=== PATIENT | female | born 2000 | race Caucasian/White ===

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

== ENCOUNTER 2022-09-05 17:44 | Emergency (ER) | payer OTHER, SELFPAY ==
--- NOTE | ~2022-09-05 | XR_ITS ---
EXAM: XR elbow LT min 3V DATE: 09/05/2022 18:05 HISTORY: hit left elbow on tray at work . COMPARISON: None available. FINDINGS: Normal mineralization. No fracture or dislocation. No lytic or blastic lesion. Joint space s are maintained. No erosion or periosteal change. Soft tissues within normal limits. IMPRESSION: No acute osseous finding in the left elbow. Reviewed, dictated and finalized at location K.
--- NOTE | 2022-09-05 18:07 | ED.UPPEXIN ---
HPI - Extremity Injury (Upper) General Chief Complaint: Extremity Injury, Upper Stated Complaint: WC, lt elbow injury Time Seen by Provider: 09/05/22 17:45 Source: patient Mode of arrival: ambulatory Limitations: no limitations History of Present Illness HPI narrative: Patient is a 21-year-old female who presents with left elbow pain after hitting it on a tray while working at [employer]. Patient states she has tingling to her pinky that feels like it is asleep. Is able to bend arm normally but is painful to straighten elbow. No wrist or hand pain or weakness. Related Data Home Medications Medication Instructions Recorded Confirmed norethindrone 1.5 mg-ethinyl 1 tablet DAILY 09/05/22 09/05/22 estradiol 30 mcg(21)/iron 75 mg(7) tablet (Rachael Fe 1.5/30 (28)) Allergies Allergy/AdvReac Type Severity Reaction Status Date / Time peanut Allergy Severe anaphylaxis Verified 09/05/22 18:13 Review of Systems Review of Systems: All systems reviewed & are unremarkable except as noted in HPI and below Constitutional: Constitutional: Denies body ache(s), Denies chills, Denies fatigue, Denies fever(s), Denies headache(s), Denies malaise and Denies weakness Eyes: Eyes: Denies blurry vision, Denies irritation and Denies loss of vision ENT: Denies otalgia, Denies headache(s), Denies nasal discharge, Denies sinus pain and Denies sore throat Cardiovascular: Cardiovascular: Denies chest pain, Denies irregular heart rhythm and Denies dyspnea Respiratory: Respiratory: Denies dyspnea Gastrointestinal: Gastrointestinal: Denies abdominal pain, Denies melena, Denies hematochezia, Denies diarrhea, Denies nausea and Denies vomiting Musculoskeletal: Musculoskeletal: Denies back pain, Denies myalgias and Reports arthralgias Integumentary/Breasts: Skin/Breast: Denies pruritus and Denies rash Neurologic: Denies headache(s), Denies loss of vision and Denies weakness Psychiatric: Psychiatric: Reports no additional psychiatric complaints Endocrine: Endocrine: Denies fatigue PMFSH Past Medical History Medical History (Updated 09/05/22 @ 18:25 by Jocelyn Lobo, JESSE) Healthy female adult Peanut allergy Surgical History Surgical History (System 10/25/21 @ 09:27 by Tommy Edmondson) No history of previous surgery Social History Social History (System 10/25/21 @ 09:27 by Tommy Edmondson) Smoking status: Never smoker Alcohol intake: never Substance use: never Comments At time of signature, agree with nursing past medical, surgical, social and family history. There is no relevant family history pertinent to the presenting complaint. Exam Const: General: cooperative, healthy appearing, comfortable, no acute distress and well nourished Nutritional Appearance: well nourished Orientation/consciousness: patient oriented x3 Limitations: no limitations HENMT: Head: normal to inspection, normocephalic and atraumatic Ears: hearing grossly normal bilaterally and external ears normal Face/Nose/Sinus: Normal external nose present, normal facial exam and face symmetric Face and sinus: normal facial exam and face symmetric Mouth: Yes lip normal Eyes: General: appearance normal, both eyes and all related structures Alignment and Position: alignment normal and position normal Periorbital: periorbital findings normal Eyelids: eyelids normal Pupils: Equal, round and reactive pupils present EOM: EOMs intact bilaterally Neck: Neck: normal visual inspection, full ROM and supple Chest: Chest palpation & inspection: normal inspection of the chest Resp: Effort & Inspection: normal respiratory effort and able to speak in complete sentences Auscultation: clear to auscultation bilaterally Cardio: Rate: regular rate Rhythm: regular rhythm Heart sounds: S1 normal heart sound present and S2 normal heart sound present GI: Inspection: normal to inspection Skin: General skin exam: normal color and no rashes or lesions noted Neuro:
[2022-09-05 18:08] VITALS: BP 113/73; PULSE 81; RESP 16; TEMP 36.6; O2SAT 100
[2022-09-05] MEDS: IBUPROFEN 400 MG TABLET 800 MG PO (18:19)
== END 2022-09-05 18:40 | disposition home or self-care (01) ==
PROVIDERS: Emergency Provider Nurse Practitioner Family; PCP Pediatrics
DX: M70.22 Olecranon bursitis, left elbow (principal)
CPT/HCPCS: 73080; 99213; A9270; G0463

== ENCOUNTER 2022-12-03 16:33 | Emergency (ER) | payer OTHER, SELFPAY ==
[2022-12-03 16:43] VITALS: BP 130/81; PULSE 102; RESP 16; TEMP 37.2; O2SAT 100
[2022-12-03] MEDS: diphenhydrAMINE HCl CAP 25 MG CAPSULE 50 MG PO (16:45)
[2022-12-03] MEDS: predniSONE 20 MG TABLET 40 MG PO (16:52)
--- NOTE | 2022-12-03 16:52 | ED.GENADULT ---
HPI - General Adult General Chief complaint: Allergic Reaction Stated complaint: Allergic Reaction Time Seen by Provider: 12/03/22 16:40 Source: patient Mode of arrival: ambulatory Limitations: no limitations History of Present Illness HPI narrative: Patient is a 22-year-old female who presents with possible allergic reaction to prepackaged slice green apples from [employer] approximately 20 minutes ago. Patient has an allergy to peanut. Patient has not taken any medications. Reports her lips feel tingly but not swollen, top of mouth feels itchy, and throat feels like it does when you have strep. Denies any feeling that throat is closing up or any shortness of breath. Is still able to speak in full sentences. Does have an EpiPen in her car but has not used it. Related Data Home Medications Medication Instructions Recorded Confirmed norethindrone 1.5 mg-ethinyl 1 tablet DAILY 09/05/22 09/05/22 estradiol 30 mcg(21)/iron 75 mg(7) tablet (Rachael Fe 1.5/30 (28)) Allergies Allergy/AdvReac Type Severity Reaction Status Date / Time peanut Allergy Severe anaphylaxis Verified 09/05/22 18:13 Review of Systems Review of Systems: All systems reviewed & are unremarkable except as noted in HPI and below Constitutional: Constitutional: Denies body ache(s), Denies chills, Denies fatigue, Denies fever(s), Denies headache(s), Denies malaise and Denies weakness Eyes: Eyes: Denies blurry vision, Denies irritation and Denies loss of vision ENT: Denies otalgia, Denies headache(s), Denies lip swelling, Denies nasal discharge, Denies sinus pain, Denies sore throat, Denies tongue swelling and Reports other (Lips tingling, top of mouth itching) Cardiovascular: Cardiovascular: Denies chest pain, Denies irregular heart rhythm and Denies dyspnea Respiratory: Respiratory: Denies dyspnea Gastrointestinal: Gastrointestinal: Denies abdominal pain, Denies melena, Denies hematochezia, Denies diarrhea, Denies nausea and Denies vomiting Musculoskeletal: Musculoskeletal: Denies back pain, Denies myalgias and Denies arthralgias Integumentary/Breasts: Skin/Breast: Denies pruritus and Denies rash Neurologic: Denies headache(s), Denies loss of vision and Denies weakness Psychiatric: Psychiatric: Reports no additional psychiatric complaints Endocrine: Endocrine: Denies fatigue PMFSH Past Medical History Medical History Healthy female adult Peanut allergy Surgical History Surgical History No history of previous surgery Social History Social History Smoking status: Never smoker Alcohol intake: never Substance use: never Comments At time of signature, agree with nursing past medical, surgical, social and family history. There is no relevant family history pertinent to the presenting complaint. Exam Const: General: cooperative, healthy appearing, comfortable, no acute distress and well nourished Nutritional Appearance: well nourished Orientation/consciousness: patient oriented x3 Limitations: no limitations HENMT: Head: normal to inspection, normocephalic and atraumatic Ears: hearing grossly normal bilaterally, external ears normal, TM's normal bilaterally and EAC's normal Face/Nose/Sinus: Normal external nose present, Normal nares present, Normal nasal mucous membranes and turbinates present, normal facial exam and face symmetric Face and sinus: normal facial exam and face symmetric Mouth: Yes Normal oral and palatal mucosa present, Yes lip normal, Yes tongue normal, Yes Normal salivary glands and ducts present, Yes oropharynx normal and Yes moist mucous membranes Teeth and gingiva: dentition normal Throat: posterior oropharynx normal, tonsils normal and uvula midline Eyes: General: appearance normal, both eyes and all related structures Alignment and Position: ali
--- NOTE | 2022-12-03 17:56 | PC.NURSE ---
1710- pt states that almost all of the symptoms have resolved, with exception of the outside of lip tingling a bit still. 1735- pt is tired and symptoms free. friend is driving her home.
== END 2022-12-03 17:47 | disposition home or self-care (01) ==
PROVIDERS: Emergency Provider Nurse Practitioner Family; PCP Pediatrics
DX: R20.2 Paresthesia of skin (principal); L29.9 Pruritus, unspecified; T78.1XXA Other adverse food reactions, not elsewhere classified, initial encounter
CPT/HCPCS: 99213; A9270; G0463; J7512